=== PATIENT | female | born 1930 | race American Indian/Alaskan Native ===

== ENCOUNTER 2017-09-21 13:17 | Day surgery (SDC) | payer MEDICARE ==
[2017-09-16 11:32] VITALS: BMI 31.1
[2017-09-21 14:27] LABS: BASO # 0.03 K/mm3 (0.0-2.0); BASO % 0.4 % (0.0-3.0); EOS # 0.3 (0.0-0.7); EOS % 3.1 % (1.5-5.0); GRAN # 5.19 (1.4-6.5); GRAN % 63.5 % (50.0-68.0); HEMOGLOBIN 11.3 g/dL (12.0-16.0); LYMPH # 2.3 (1.2-3.4); LYMPH % 27.9 % (22.0-35.0); MEAN CELL VOLUME 87.8 fl (80.0-105.0); MEAN CORPUSCULAR HGB CONC 31.9 g/dl (31.0-37.0); MEAN PLATELET VOLUME 10.6 fl (7.0-11.0); MONO # 0.4 (0.1-0.6); MONO % 5.1 % (1.0-6.0); RBC 4.03 10^6/uL (3.5-6.1); RED CELL DISTRIBUTION WIDTH 13.5 % (11.5-14.5); WHITE BLOOD COUNT 8.2 10^3/ul (4.5-11.0)
[2017-09-21 14:37] LABS: BLOOD UREA NITROGEN 18 mg/dL (7-21); CALCIUM 10.3 mg/dL (8.4-10.5); GFR AFRICAN-AMERICAN > 60; GFR NON-AFRICAN AMERICAN 59; INR 1.02 (0.93-1.08); PARTIAL THROMBOPLASTIN TIME 28.5 Seconds (25.1-36.5); PROTHROMBIN TIME 11.6 SECONDS (9.4-12.5)
[2017-09-21] MEDS ORDERED: Midazolam 2 MG/2 ML VIAL ONE (16:19)
[2017-09-21] MEDS ORDERED: Oxycodone/Acetaminophen 5/325 mg Tab PO PRN (17:29)
[2017-09-21] MEDS ORDERED: Sodium Chloride 0.45% 1,000 ML IV SCH (17:30)
--- NOTE | 2017-09-21 18:07 | CT ---
PROCEDURE: CT guided bone marrow aspiration and biopsy. HISTORY: Elevated gamma globulins. Evaluate for multiple myeloma. PHYSICIAN(S): Zac Muñoz MD. TECHNIQUE: The relative risks and indications of the procedure were explained to the patient and her daughter and consent obtained. The patient was placed prone on the CT scanner and preliminary images through the pelvis obtained. Conscious sedation and monitoring were provided throughout the procedure by a nurse. The right posterior superior iliac spine was selected for biopsy.. A posterior approach was selected and the area prepped and draped in the usual sterile fashion. 1% Xylocaine was used to anesthetize the skin and soft tissues. A 11 gauge on control bone biopsy needle was advanced into the right posterior superior iliac spine. Its position was confirmed with CT. The needle was advanced through the cortex. Bone marrow aspiration was performed. A blood clot specimen was obtained. Next a single long core biopsy was obtained with on control needle. The specimen was processed by Dr. Pichardo. IMPRESSION: 1. CT-guided bone marrow aspiration and biopsy as described above.
[2017-09-21] MEDS ORDERED: Oxycodone/Acetaminophen 5/325 mg Tab ONE (18:21)
[2017-09-21 18:46] VITALS: TEMP 98; O2SAT 97
[2017-09-21 19:15] VITALS: RESP 19
[2017-09-21 19:56] VITALS: BP 151/70; PULSE 77
== END 2017-09-21 20:00 | disposition home or self-care (01) ==
LOC: SDS 13:17
PROVIDERS: ATTEND Radiology Vascular & Interventional Radiology
DX: D75.89 Other specified diseases of blood and blood-forming organs (principal); D64.9 Anemia, unspecified; I10 Essential (primary) hypertension; E11.9 Type 2 diabetes mellitus without complications; Z79.84 Long term (current) use of oral hypoglycemic drugs
CPT/HCPCS: 36415; 38221; 80048; 85025; 85610; 85730; J0360; J2250; J2405; J3010; J7030

== ENCOUNTER 2018-12-20 10:43 | Outpatient (CLI) | payer MEDICARE | END 2018-12-20 10:44 | disposition home or self-care (01) | LOC: RAD 10:43 ==